=== PATIENT | female | born 1950 | race Caucasian/White ===

== ENCOUNTER 2018-05-14 09:59 | Emergency (ER) | payer OTHER, MEDICARE ==
[~2018-05-14] VITALS: Ht 147.3 cm; Wt 67.6 kg
[~2018-05-14 09:59] MED LIST: CELEXA 10 MG TA10 M1 PO
[2018-05-14 10:27] LABS: ABSOLUTE EOSINOPHILS 0.1 thou/uL (0.0-0.7); ABSOLUTE LYMPHOCYTES 1.4 thou/uL (0.8-5.3); ABSOLUTE MONOCYTES 0.5 thou/uL (0.0-1.2); ABSOLUTE NEUTROPHILS 5.6 thou/uL (1.6-8.1); BASOPHILS 0.3 %; EOSINOPHILS 0.9 %; HEMATOCRIT 43.1 % (37.0-47.0); HEMOGLOBIN 14.4 gm/dL (12.0-15.0); LYMPHOCYTES 18.9 %; MCH 30.6 pg (26.0-34.0); MCHC 33.5 g/dL (28.0-37.0); MCV 91.5 fL (80.0-100.0); MONOCYTES 6.4 %; NUCLEATED RBCS 0 /100WBC; PLATELET COUNT* 204 thou/uL (150-400); POLYS 73.5 %; RBC 4.71 mil/uL (4.20-5.00); RDW-CV 12.7 % (10.5-14.5); WBC 7.6 thou/uL (4.0-11.0)
[2018-05-14 10:36] LABS: CALCIUM 9.4 mg/dL (8.5-10.1); CREATININE 0.8 mg/dL (0.6-1.3); POTASSIUM 3.5 mmol/L (3.5-5.1)
[2018-05-14 10:50] LABS: ALBUMIN 3.6 g/dL (3.4-5.0); TOTAL BILIRUBIN 0.4 mg/dL (<0.1-1.0); TOTAL PROTEIN 7.3 g/dL (6.4-8.2)
[2018-05-14 12:23] LABS: URINE BILIRUBIN NEGATIVE (Negative); URINE BLOOD TRACE (Negative); URINE CLARITY CLEAR; URINE COLOR YELLOW; URINE GLUCOSE-RANDOM NEGATIVE (Negative); URINE KETONES NEGATIVE (Negative); URINE LEUKOCYTES-REFLEX NEGATIVE (Negative); URINE NITRITE-REFLEX NEGATIVE (Negative); URINE PROTEIN TRACE (Negative); URINE SPECIFIC GRAVITY <= 1.005 (1.005-1.030); URINE UROBILINOGEN 0.2 E.U./dl (0.2-1.0)
[2018-05-14] MEDS ORDERED: NORCO 5-325 TA1 EACH PO (12:25)
[2018-05-14 12:35] LABS: URINE RBC 0-2 Rare /HPF (0-2); URINE WBC-REFLEX 0-5 Rare /HPF (0-5)
[2018-05-14 12:55] VITALS: BP 125/52
== END 2018-05-14 12:56 | disposition home or self-care (01) ==
LOC: M.ERS 09:59
PROVIDERS: Physician Assistant
DX: N30.10 Interstitial cystitis (chronic) without hematuria (principal)

== ENCOUNTER → 2018-07-05 | Outpatient (CLI) | payer OTHER, MEDICARE ==
[~2018-07-05] MED LIST changes: +NORCO 5-325 TA1 EACH PO
== END ==
LOC: M.RAD 12:33
DX: Z12.31 Encounter for screening mammogram for malignant neoplasm of breast (principal)

== ENCOUNTER 2019-03-21 07:42 | Observation (INO) | payer OTHER, MEDICARE ==
[~2019-03-21] VITALS: Ht 121.9 cm; Wt 72.6 kg
[2019-03-21] MEDS ORDERED: AMITRIPTYLINE H25 M2 PO (08:06)
[2019-03-21] MEDS ORDERED: HYDROXYZINE HCL10 M1 PO (08:07)
[2019-03-21] MEDS ORDERED: ELMIRON 100 MG100 M1 PO (08:07)
[2019-03-21] MEDS ORDERED: ESTRADIOL 1 MG T1 M1 PO (08:07)
[2019-03-21] MEDS ORDERED: URIBEL CAPSULE1 EACH PO (08:09)
[2019-03-21] MEDS ORDERED: TOPICAINE 5113 GM CERVICAL (08:09)
[2019-03-21] MEDS ORDERED: GLYCOLAX119 GM PO (08:10)
[2019-03-21] MEDS ORDERED: DIAZEPAM 5 MG5 M1 VAG (08:10)
[2019-03-21] MEDS ORDERED: DETROL LA4 MG PO (08:11)
[2019-03-21] MEDS ORDERED: UNICOMPLEX M TA1 TA1 PO (08:11)
[2019-03-21 08:31] LABS: URINE BLOOD 3+ (Negative); URINE CLARITY SL CLOUDY; URINE GLUCOSE-RANDOM NEGATIVE (Negative); URINE KETONES NEGATIVE (Negative); URINE LEUKOCYTES-REFLEX NEGATIVE (Negative); URINE NITRITE-REFLEX NEGATIVE (Negative); URINE PROTEIN 3+ (Negative); URINE SPECIFIC GRAVITY >= 1.030 (1.005-1.030); URINE UROBILINOGEN 0.2 E.U./dl (0.2-1.0)
[2019-03-21 08:45] LABS: ICTOTEST (BILI CONFIRMATORY) Negative (Negative); URINE BILIRUBIN 1+ (Negative)
[2019-03-21 08:47] LABS: SQUAMOUS 4-10 Moderate /LPF (0-3); URINE WBC-REFLEX 0-5 Rare /HPF (0-5)
[2019-03-21 08:48] LABS: BACTERIA-REFLEX >30 Many /HPF (None Seen); CRYSTALS None Seen /LPF (None Seen); HYALINE CASTS 0-3 Few /LPF (None Seen); MUCUS 4-6 Moderate strn/LPF (None Seen); URINE RBC >20 Many /HPF (0-2)
[2019-03-21 08:49] LABS: URINE COLOR OTHER
[2019-03-21 09:00] LABS: ABSOLUTE EOSINOPHILS 0.1 thou/uL (0.0-0.7); ABSOLUTE LYMPHOCYTES 1.6 thou/uL (0.8-5.3); ABSOLUTE MONOCYTES 0.5 thou/uL (0.0-1.2); ABSOLUTE NEUTROPHILS 5.3 thou/uL (1.6-8.1); BASOPHILS 0.4 %; EOSINOPHILS 0.8 %; HEMATOCRIT 40.4 % (37.0-47.0); HEMOGLOBIN 13.8 gm/dL (12.0-15.0); LYMPHOCYTES 20.8 %; MCH 30.6 pg (26.0-34.0); MCHC 34.2 g/dL (28.0-37.0); MCV 89.3 fL (80.0-100.0); MONOCYTES 6.8 %; MPV 8.7 fl. (7.2-11.1); NUCLEATED RBCS 0 /100WBC; PLATELET COUNT* 170 thou/uL (150-400); POLYS 71.2 %; RBC 4.52 mil/uL (4.20-5.00); RDW-CV 12.9 % (10.5-14.5); WBC 7.5 thou/uL (4.0-11.0)
[2019-03-21 09:07] LABS: CALCIUM 8.9 mg/dL (8.5-10.1); POTASSIUM 3.9 mmol/L (3.5-5.1)
[2019-03-21 09:12] LABS: ALBUMIN 3.6 g/dL (3.4-5.0); TOTAL BILIRUBIN 0.2 mg/dL (<0.1-1.0); TOTAL PROTEIN 7.4 g/dL (6.4-8.2)
[2019-03-21 12:08] VITALS: BP 137/71
[2019-03-21 21:05] VITALS: BP 108/47
[2019-03-22] MEDS ORDERED: CIPRO500 MG PO (09:16)
[2019-03-22 11:12] LABS: ABSOLUTE EOSINOPHILS 0.1 thou/uL (0.0-0.7); ABSOLUTE LYMPHOCYTES 1.9 thou/uL (0.8-5.3); ABSOLUTE MONOCYTES 0.6 thou/uL (0.0-1.2); ABSOLUTE NEUTROPHILS 2.3 thou/uL (1.6-8.1); BASOPHILS 0.5 %; EOSINOPHILS 2.3 %; HEMATOCRIT 38.1 % (37.0-47.0); HEMOGLOBIN 13.2 gm/dL (12.0-15.0); LYMPHOCYTES 39.1 %; MCHC 34.5 g/dL (28.0-37.0); MCV 89.9 fL (80.0-100.0); MONOCYTES 11.6 %; MPV 8.7 fl. (7.2-11.1); NUCLEATED RBCS 0 /100WBC; PLATELET COUNT* 152 thou/uL (150-400); POLYS 46.5 %; RBC 4.24 mil/uL (4.20-5.00); RDW-CV 12.9 % (10.5-14.5)
[2019-03-22 11:22] LABS: CALCIUM 8.8 mg/dL (8.5-10.1); CREATININE 0.8 mg/dL (0.6-1.3); POTASSIUM 3.7 mmol/L (3.5-5.1)
[2019-03-22 13:43] VITALS: BP 108/47
[2019-03-22 14:20] VITALS: BP 108/47
== END 2019-03-22 14:20 | disposition home or self-care (01) ==
LOC: M.ERS 07:42 → M.TBA-ER 11:06 → M.ORTHSURG 11:06
PROVIDERS: Personal Emergency Response Attendant; ADMIT Internal Medicine
DX: N30.10 Interstitial cystitis (chronic) without hematuria (principal); K59.00 Constipation, unspecified; N39.0 Urinary tract infection, site not specified; F41.9 Anxiety disorder, unspecified; Z79.899 Other long term (current) drug therapy

== ENCOUNTER → 2020-03-27 | Outpatient (CLI) | payer MEDICARE, OTHER ==
[~2020-03-27] MED LIST changes: +AMITRIPTYLINE H25 M2 PO; +CIPRO500 MG PO; +DETROL LA4 MG PO; +DIAZEPAM 5 MG5 M1 VAG; +ELMIRON 100 MG100 M1 PO; +ESTRADIOL 1 MG T1 M1 PO; +GLYCOLAX119 GM PO; +HYDROXYZINE HCL10 M1 PO; +TOPICAINE 5113 GM CERVICAL; +UNICOMPLEX M TA1 TA1 PO; +URIBEL CAPSULE1 EACH PO
== END ==
LOC: M.RAD 10:54
PROVIDERS: ATTEND Family Medicine
DX: Z12.31 Encounter for screening mammogram for malignant neoplasm of breast (principal)